=== PATIENT | female | born 1985 | race African-American/Black ===

== ENCOUNTER 2017-02-21 13:38 | Emergency (ER) | payer MEDICAID, OTHER ==
[2017-02-21 13:47] VITALS: BP 124/86; PULSE 89; RESP 14; TEMP 98.2; O2SAT 98
[2017-02-21] MEDS ORDERED: VENTAER INH (14:34)
--- NOTE | 2017-02-21 14:40 | PD ---
HPI Chief Complaint: Medical Clearance Time Seen by Provider: 14:27 Travel History International Travel<30 days: No Contact w/Intl Traveler<30days: No Traveled to known affect area: No History of Present Illness HPI 31-year-old female presents to the emergency department complaining of coughing up blood since doing this morning patient states that she has some "streaking" on her tissue in her she coughs. Patient denies shortness of breath. Patient denies excessive coughing. States she has had a little bit of "tightness" in her chest patient is asthmatic and has not been using her inhalers. Patient denies runny nose, fever, chills, recent travel, recent surgeries, fractures, or blood disorders. Patient denies any chronic medical problems or medication use. Patient denies any history of blood clots. Her last surgery was in August last year for breast reduction. Patient is followed up with her primary care physician about this yet. PFSH Past Medical History Asthma: Yes Autoimmune Disease: No Blood Disorders: No Cancer: No Cardiovascular Problems: No Diabetes: No Diminished Hearing: No Endocrine: No Genitourinary: No Headaches: Yes Hepatitis: No Hiatal Hernia: No Immune Disorder: No Medical other: No Musculoskeletal: No Neurologic: No Psychiatric: No Reproductive: No Respiratory: No Sickle Cell Disease: Yes (SICKLE CELL TRAIT) Thyroid Disease: No ?: Not : 2 Para: 2 Miscarriage: 0 : 1 Tubal Ligation: Yes Past Surgical History Abdominal Surgery: No AICD: No Cardiac Surgery: No Section: Yes (X2) Ear Surgery: No Endocrine Surgery: No Eye Surgery: No Gynecologic Surgery: Yes Joint Replacement: No Oral Surgery: No Pacemaker: No Thoracic Surgery: No Other Surgery: Yes (breast reduction) Social History Alcohol Use: No Tobacco Use: No Substance Use: No Allergies-Medications (Allergen,Severity, Reaction): Coded Allergies: No Known Allergies (Verified Adverse Reaction, Unknown, 02/21/17) Reported Meds & Prescriptions Reported Meds & Active Scripts Active Medrol Dosepak (Methylprednisolone) 4 Mg Dspk 4 Mg PO DIRECTED Per Pharmacist direction Reported Ventolin Hfa 18 GM Inh (Albuterol Sulfate) 90 Mcg/Act Aer 2 Puff INH Q6H PRN Review of Systems Except as stated in HPI: all other systems reviewed are Neg Physical Exam Narrative GENERAL: Well-nourished, well-developed patient. In no apparent distress SKIN: Focused skin assessment warm/dry. HEAD: Normocephalic. Atraumatic. EYES: No scleral icterus. No injection or drainage. NECK: Supple, trachea midline. No JVD or lymphadenopathy. Mild cobblestoning posterior pharynx CARDIOVASCULAR: Regular rate and rhythm without murmurs, gallops, or rubs. RESPIRATORY: Breath sounds equal bilaterally. No accessory muscle use. No wheezing, rales, rhonchi. GASTROINTESTINAL: Abdomen soft, non-tender, nondistended. MUSCULOSKELETAL: No cyanosis, or edema. BACK: Nontender without obvious deformity. No CVA tenderness. Data Data Last Documented VS Vital Signs Date Time Temp Pulse Resp B/P (MAP) Pulse Ox O2 Delivery O2 Flow Rate FiO2 02/21/17 13:47 98.2 89 14 124/86 (99) 98 Orders Orders Albuterol-Ipratropium Neb (Duoneb Neb) (02/21/17 14:45) Ed Discharge Order (02/21/17 15:17) [facility] Medical Decision Making Medical Screen Exam Complete: Yes Emergency Medical Condition: Yes Differential Diagnosis hemoptysis, pharyngitis, asthma Narrative Course 31-year-old female presents to the emergency department complaining of coughing up blood since doing this morning patient states that she has some "streaking" on her tissue in her she coughs. Patient denies shortness of breath. Patient denies excessive coughing. States she has had a little bit of "tightness" in her chest patient is asthmatic and has not been using her inhalers. Patient denies runny nose, fever, chills, recent travel, recent surgeries, fractures, or blood disorders. Patient denies any chronic medical problems or medication use. Patient denies any history of blood clots. Her last surgery was in August last year for breast reduction. Patient is followed up with her primary care physician about this yet. Vital signs stable. No tachycardia and no hypoxia. Physical exam findings unremarkable. Homans sign is negative patient denies chest pain, shortness of breath, leg pain. Wells and PERC rules applied and negative Patient received DuoNeb and reassessed. Patient states she feels better after the nebulizer treatments. Denies any episodes of coughing while she was in the emergency department. Patient had no coughing while in the emergency department today. Advised patient to return to her primary care physician for a potential addition to her albuterol treatment. Will prescribe prednisone for 5 days. Patient advised to return to the emergency department for worsening or persistent symptoms. Diagnosis Primary Impression: Asthma Qualified Codes: J45.20 - Mild intermittent asthma, uncomplicated Referrals: [facility] Additional Instructions: Follow up with your primary care physician within 2-3 days. If your symptoms persist or worsen, return to the emergency department. Take medications as prescribed. Scripts Methylprednisolone Dosepak (Medrol Dosepak) 4 Mg Dspk 4 MG PO DIRECTED, #1 DSPK 0 Refills Per Pharmacist direction Prov: Francois Marion MD 02/21/17 Disposition: 01 DISCHARGE HOME Condition: Stable Julianna Santana Feb 21, 2017 14:40
[2017-02-21] MEDS ORDERED: RESP: ALBUTEROL 2.5 MG/IPRATROPIUM 0.5 MG NEB (SCH) NEB ONE (14:45)
[2017-02-21] MEDS ORDERED: MEDR4PAK PO (15:15)
== END 2017-02-21 15:46 | disposition home or self-care (01) ==
LOC: NEPD 13:38
DX: J45.909 Unspecified asthma, uncomplicated (principal); R04.2 Hemoptysis; D57.3 Sickle-cell trait; Z79.51 Long term (current) use of inhaled steroids
CPT/HCPCS: 94664; 99283

== ENCOUNTER 2017-03-09 21:07 | Emergency (ER) | payer MEDICAID ==
[~2017-03-09] VITALS: Ht 165.1 cm; Wt 70.0 kg
[~2017-03-09 21:07] MED LIST: MEDR4PAK PO; VENTAER INH
[2017-03-09 21:10] VITALS: BP 127/72; PULSE 91; RESP 16; TEMP 98.7; O2SAT 99
[2017-03-09] MEDS ORDERED: ONDANSETRON HCL 4 MG/2 ML VIAL IVP ONE (21:45)
[2017-03-09] MEDS ORDERED: SODIUM CHLORIDE 0.9% FLUSH 10 ML FLUSH IVF PRN (21:45)
[2017-03-09] MEDS ORDERED: SODIUM CHLOR 0.9% 1000 ML INJ 1,000 ML IV ONE (21:45)
[2017-03-09 21:50] LABS: AUTOMATED NEUTROPHIL # 4.4 TH/MM3 (1.8-7.7); BASOPHIL # 0.1 TH/MM3 (0-0.2); EOSINOPHIL # 0.1 TH/MM3 (0-0.4); EOSINOPHIL % 0.9 % (0.0-4.0); HEMOGLOBIN 9.1 GM/DL (11.6-15.3); LYMPHOCYTE # 3.9 TH/MM3 (1.0-4.8); MEAN CELL VOLUME 67.2 FL (80.0-100.0); MEAN CORPUSCULAR HEMOGLOBIN 21.1 PG (27.0-34.0); MEAN CORPUSCULAR HGB CONC 31.4 % (32.0-36.0); MEAN PLATELET VOLUME 7.5 FL (7.0-11.0); MONO % 8.8 % (0.0-8.0); MONOCYTE # 0.8 TH/MM3 (0-0.9); NEUT % 47.3 % (16.0-70.0); PLATELET COUNT 495 TH/MM3 (150-450); RED BLOOD COUNT 4.31 MIL/MM3 (4.00-5.30); RED CELL DISTRIBUTION WIDTH 17.4 % (11.6-17.2); WHITE BLOOD COUNT 9.3 TH/MM3 (4.0-11.0)
--- NOTE | 2017-03-09 22:01 | PD ---
HPI Chief Complaint: GI Complaint Time Seen by Provider: 21:18 Travel History International Travel<30 days: No Contact w/Intl Traveler<30days: No Traveled to known affect area: No History of Present Illness HPI Patient is a 31-year-old female who presents to emergency room complaints of nausea. She reports that she is one-month late on her period, patient reports that she took 2 home test which were positive. Patient reports that she wanted to confirm her while in the emergency room. Patient reports no abdominal pain, no vomiting, patient denies any fever or chills, patient reports that she just feels nauseous. Denies dysuria, urinary urgency/ frequency. Denies vaginal discharge or bleeding. PFSH Past Medical History Asthma: Yes Autoimmune Disease: No Blood Disorders: No Cancer: No Cardiovascular Problems: No Diabetes: No Diminished Hearing: No Endocrine: No Genitourinary: No Headaches: Yes Hepatitis: No Hiatal Hernia: No Immune Disorder: No Musculoskeletal: No Neurologic: No Psychiatric: No Reproductive: No Respiratory: No Sickle Cell Disease: Yes (SICKLE CELL TRAIT) Thyroid Disease: No Tetanus Vaccination: Unknown Influenza Vaccination: Yes ?: LMP: 01/08/2017 : 2 Para: 2 Miscarriage: 0 : 1 Tubal Ligation: Yes Past Surgical History Abdominal Surgery: No AICD: No Cardiac Surgery: No Section: Yes (X2) Ear Surgery: No Endocrine Surgery: No Eye Surgery: No Gynecologic Surgery: Yes Joint Replacement: No Oral Surgery: No Pacemaker: No Thoracic Surgery: No Other Surgery: Yes (breast reduction) Social History Alcohol Use: No Tobacco Use: No Substance Use: No Allergies-Medications (Allergen,Severity, Reaction): Coded Allergies: No Known Allergies (Verified Adverse Reaction, Unknown, 03/09/17) Reported Meds & Prescriptions Reported Meds & Active Scripts Active Reported Ventolin Hfa 18 GM Inh (Albuterol Sulfate) 90 Mcg/Act Aer 2 Puff INH Q6H PRN Review of Systems General / Constitutional: No: Fever Eyes: No: Visual changes HENT: No: Headaches Cardiovascular: No: Chest Pain or Discomfort Respiratory: No: Shortness of Breath Gastrointestinal: Positive: Nausea, No: Abdominal Pain Genitourinary: No: Dysuria, Nocturia, Hematuria, Pelvic Pain, Flank Pain, Discharge, Vaginal Bleeding Musculoskeletal: No: Pain Skin: No Rash Neurologic: No: Weakness Psychiatric: No: Depression Endocrine: No: Polydipsia Hematologic/Lymphatic: No: Easy Bruising Physical Exam Narrative GENERAL: NAD SKIN: Focused skin assessment warm/dry. HEAD: Atraumatic. Normocephalic. EYES: Pupils equal and round. No scleral icterus. No injection or drainage. ENT: No nasal bleeding or discharge. Mucous membranes pink and moist. NECK: Trachea midline. No JVD. CARDIOVASCULAR: Regular rate and rhythm. No murmur appreciated. RESPIRATORY: No accessory muscle use. Clear to auscultation. Breath sounds equal bilaterally. GASTROINTESTINAL: Abdomen soft, non-tender, nondistended. Hepatic and splenic margins not palpable. MUSCULOSKELETAL: No obvious deformities. No clubbing. No cyanosis. No edema. NEUROLOGICAL: Awake and alert. Normal speech. PSYCHIATRIC: Appropriate mood and affect; insight and judgment normal. Data Data Last Documented VS Vital Signs Date Time Temp Pulse Resp B/P (MAP) Pulse Ox O2 Delivery O2 Flow Rate FiO2 03/09/17 21:10 98.7 91 16 127/72 (90) 99 Orders Orders Ed Urine Pregnancytest Poc (03/09/17 21:24) Beta Hcg (Quant/Titer) (03/09/17 21:32) Complete Blood Count With Diff (03/09/17 21:32) Comprehensive Metabolic Panel (03/09/17 21:32) Iv Access Insert/Monitor (03/09/17 21:32) Sodium Chloride 0.9% Flush (Ns Flush) (03/09/17 21:45) Ondansetron Inj (Zofran Inj) (03/09/17 21:45) Sodium Chlor 0.9% 1000 Ml Inj (Ns 1000 M (03/09/17 21:45) Urinalysis - C+S If Indicated (03/09/17 21:32) Potassium Chloride (Kcl) (03/09/17 23:00) Labs Laboratory Tests Test 03/09/17 21:40 White Blood Count 9.3 TH/MM3 Red Blood Count 4.31 MIL/MM3 Hemoglobin 9.1 GM/DL Hematocrit 29.0 % Mean Corpuscular Volume 67.2 FL Mean Corpuscular Hemoglobin 21.1 PG Mean Corpuscular Hemoglobin Concent 31.4 % Red Cell Distribution Width 17.4 % Platelet Count 495 TH/MM3 Mean Platelet Volume 7.5 FL Neutrophils (%) (Auto) 47.3 % Lymphocytes (%) (Auto) 42.0 % Monocytes (%) (Auto) 8.8 % Eosinophils (%) (Auto) 0.9 % Basophils (%) (Auto) 1.0 % Neutrophils # (Auto) 4.4 TH/MM3 Lymphocytes # (Auto) 3.9 TH/MM3 Monocytes # (Auto) 0.8 TH/MM3 Eosinophils # (Auto) 0.1 TH/MM3 Basophils # (Auto) 0.1 TH/MM3 CBC Comment DIFF FINAL Differential Comment Blood Urea Nitrogen 8 MG/DL Creatinine 0.72 MG/DL Random Glucose 142 MG/DL Total Protein 7.8 GM/DL Albumin 3.4 GM/DL Calcium Level 8.1 MG/DL Alkaline Phosphatase 83 U/L Aspartate Amino Transf (AST/SGOT) 14 U/L Alanine Aminotransferase (ALT/SGPT) 18 U/L Total Bilirubin 0.2 MG/DL Sodium Level 140 MEQ/L Potassium Level 3.3 MEQ/L Chloride Level 106 MEQ/L Carbon Dioxide Level 25.6 MEQ/L Anion Gap 8 MEQ/L Estimat Glomerular Filtration Rate 114 ML/MIN Human Chorionic Gonadotropin, Quant LESS THAN 1 MIU/ML MDM Medical Decision Making Medical Screen Exam Complete: Yes Emergency Medical Condition: Yes Medical Record Reviewed: Yes Interpretation(s) Vital Signs Date Time Temp Pulse Resp B/P (MAP) Pulse Ox O2 Delivery O2 Flow Rate FiO2 03/09/17 21:10 98.7 91 16 127/72 (90) 99 Differential Diagnosis , electrolyte abnormality, viral syndrome Narrative Course During the course of the patients emergency department visit, the patients history, examination, and differential diagnosis were reviewed with the patient. The patient was placed on a monitoring manager with oximetry and frequent blood pressure monitoring. The patient had an IV access obtained and blood work sent for analysis. Urine test was neg in the ER. HCG quant ordered. Overall, patient is nontoxic in appearance, patient's abdomen is soft nontender, nondistended, no peritoneal sign. The patient was initially provided IVF as well as zofran The patients laboratory studies were reviewed and remarkable for: CBC & BMP Diagram 03/09/17 21:40 Total Protein 7.8, Albumin 3.4, Calcium Level 8.1 L, Alkaline Phosphatase 83, Aspartate Amino Transf (AST/SGOT) 14 L, Alanine Aminotransferase (ALT/SGPT) 18, Total Bilirubin 0.2 hcg quant less than 1 Patient reevaluated, patient reports that she is feeling much better at this time. Patient with no abdominal pain, no nausea vomiting at this time. I reviewed all labs and all studies with patient in detail including all incidental findings, she will follow up with her primary doctor and will return to emergency room as needed. Diagnosis Primary Impression: Nausea Additional Impressions: Anemia Hypokalemia Patient Instructions: General Instructions Additional Instructions: Please follow up with your primary care doctor in 2-3 days Return to the ER if symptoms worsen or progress Return to the ER as needed Med/Other Pt SpecificInfo: Prescription(s) given Scripts Ondansetron (Zofran) 4 Mg Tab 4 MG PO Q6HR Y for NAUSEA OR VOMITING, #12 TAB 0 Refills Prov: Lesia Gracia DO 03/09/17 Disposition: 01 DISCHARGE HOME Condition: Stable Lesia Gracia DO Mar 09, 2017 22:01
[2017-03-09 22:02] LABS: ALBUMIN 3.4 GM/DL (3.4-5.0); AST (GOT) 14 U/L (15-37); BICARBONATE 25.6 MEQ/L (21.0-32.0); BLOOD UREA NITROGEN 8 MG/DL (7-18); CALCIUM 8.1 MG/DL (8.5-10.1); CHLORIDE 106 MEQ/L (98-107); CREATININE 0.72 MG/DL (0.50-1.00); GLOMERULAR FILTRATION RATE 114 ML/MIN (>89); GLUCOSE,RANDOM 142 MG/DL (74-106); SODIUM (NA) 140 MEQ/L (136-145)
[2017-03-09 22:03] LABS: ALT (GPT) 18 U/L (10-53)
[2017-03-09 22:07] LABS: ALKALINE PHOSPHATASE 83 U/L (45-117); TOTAL BILIRUBIN ADULT 0.2 MG/DL (0.2-1.0); TOTAL PROTEIN 7.8 GM/DL (6.4-8.2)
[2017-03-09] MEDS ORDERED: POTASSIUM CHLORIDE 10 MEQ CONTROLLED RELEASE TAB PO ONE (23:00)
[2017-03-09] MEDS ORDERED: ZOFR4TAB PO (23:14)
== END 2017-03-09 23:37 | disposition home or self-care (01) ==
LOC: NEPD 21:07
DX: R11.0 Nausea (principal); D64.9 Anemia, unspecified; E87.6 Hypokalemia; J45.909 Unspecified asthma, uncomplicated; D57.3 Sickle-cell trait; Z79.51 Long term (current) use of inhaled steroids
CPT/HCPCS: 80053; 84702; 84703; 85025; 96374; 99284; J2405; J7030

== ENCOUNTER 2017-04-21 19:37 | Emergency (ER) | payer MEDICAID ==
[~2017-04-21 19:37] MED LIST changes: -MEDR4PAK PO; +ZOFR4TAB PO
[2017-04-21 19:39] VITALS: BP 114/75; PULSE 100; RESP 16; TEMP 94.4; O2SAT 100
--- NOTE | 2017-04-21 20:58 | PD ---
HPI Chief Complaint: Cold / Flu Symptoms Time Seen by Provider: 19:45 Travel History International Travel<30 days: No Contact w/Intl Traveler<30days: No Traveled to known affect area: No History of Present Illness HPI 31-year-old female with generalized weakness 2 days with developing fever and body aches. No nausea or vomiting. Intermittent cough. Patient has no other symptoms to report. PFSH Past Medical History Asthma: Yes Autoimmune Disease: No Blood Disorders: No Cancer: No Cardiovascular Problems: No Diabetes: No Diminished Hearing: No Endocrine: No Genitourinary: No Headaches: Yes Hepatitis: No Hiatal Hernia: No Immune Disorder: No Musculoskeletal: No Neurologic: No Psychiatric: No Reproductive: No Respiratory: No Sickle Cell Disease: Yes (SICKLE CELL TRAIT) Thyroid Disease: No : 2 Para: 2 Miscarriage: 0 : 1 Tubal Ligation: Yes Past Surgical History Abdominal Surgery: No AICD: No Cardiac Surgery: No Section: Yes (X2) Ear Surgery: No Endocrine Surgery: No Eye Surgery: No Gynecologic Surgery: Yes Joint Replacement: No Oral Surgery: No Pacemaker: No Thoracic Surgery: No Other Surgery: Yes (breast reduction) Social History Alcohol Use: No Tobacco Use: No Substance Use: No Allergies-Medications (Allergen,Severity, Reaction): Coded Allergies: No Known Allergies (Verified Adverse Reaction, Unknown, 03/09/17) Reported Meds & Prescriptions Reported Meds & Active Scripts Active Zofran (Ondansetron HCl) 4 Mg Tab 4 Mg PO Q6HR PRN Reported Ventolin Hfa 18 GM Inh (Albuterol Sulfate) 90 Mcg/Act Aer 2 Puff INH Q6H PRN Review of Systems Except as stated in HPI: all other systems reviewed are Neg Physical Exam Narrative Well-nourished appearing female patient in no acute distress. She appears nontoxic. She is awake and alert. She moves all extremities. Her respirations are even. Abdomen is nondistended. There are no obvious deformities of the lower extremities. Data Data Last Documented VS Vital Signs Date Time Temp Pulse Resp B/P (MAP) Pulse Ox O2 Delivery O2 Flow Rate FiO2 04/21/17 19:39 94.4 100 16 114/75 (88) 100 Room Air MDM Medical Decision Making Medical Screen Exam Complete: Yes Emergency Medical Condition: Yes Medical Record Reviewed: Yes Differential Diagnosis Influenza versus pneumonia versus common cold versus viral syndrome Narrative Course 31-year-old female presents to emergency department for evaluation of flulike symptoms. Patient appears nontoxic. Temp is rechecked and 99.3. Prior to patient being assigned a bed, she chooses sleeve. AMA: The risks of leaving against medical advice without further evaluation treatment were discussed with the patient. These risks include cardiac dysfunction, cardiac dysrhythmia, possible heart attack, possible stroke or . The patient indicated understanding of these risks and appeared to have the capacity to make this decision. Diagnosis Primary Impression: Flu-like symptoms Disposition: 07 AGAINST MEDICAL ADVICE Condition: Stable TrevorNiaJannetteradha PAUL Apr 21, 2017 20:58
[2017-04-22] MEDS ORDERED: OSEL75 PO (18:12)
== END 2017-04-21 20:32 | disposition left against medical advice (07) ==
LOC: NED 19:37
DX: R53.1 Weakness (principal)
CPT/HCPCS: 99281

== ENCOUNTER 2017-04-22 17:33 | Emergency (ER) | payer MEDICAID ==
[~2017-04-22] VITALS: Ht 160 cm; Wt 77.0 kg
[2017-04-22 17:35] VITALS: BP 122/56; PULSE 107; RESP 20; TEMP 100.2; O2SAT 100
--- NOTE | 2017-04-22 18:10 | PD ---
HPI Chief Complaint: Cold / Flu Symptoms Time Seen by Provider: 18:04 Travel History International Travel<30 days: No Contact w/Intl Traveler<30days: No Traveled to known affect area: No History of Present Illness HPI 31-year-old female presents for evaluation of chills, myalgias, cough, congestion and sore throat. Symptoms started yesterday. Symptoms are mild, no aggravating or relieving factors. Denies recent travel, nausea or vomiting, abdominal pain, dysuria, rash. She has no other complaints at this time. PFSH Past Medical History Asthma: Yes Autoimmune Disease: No Blood Disorders: No Cancer: No Cardiovascular Problems: No Diabetes: No Diminished Hearing: No Endocrine: No Genitourinary: No Headaches: Yes Hepatitis: No Hiatal Hernia: No Immune Disorder: No Musculoskeletal: No Neurologic: No Psychiatric: No Reproductive: No Respiratory: No Sickle Cell Disease: Yes (SICKLE CELL TRAIT) Thyroid Disease: No ?: Not LMP: 03/24 : 2 Para: 2 Miscarriage: 0 : 1 Tubal Ligation: Yes Past Surgical History Abdominal Surgery: No AICD: No Cardiac Surgery: No Section: Yes (X2) Ear Surgery: No Endocrine Surgery: No Eye Surgery: No Gynecologic Surgery: Yes Joint Replacement: No Oral Surgery: No Pacemaker: No Thoracic Surgery: No Other Surgery: Yes (breast reduction) Social History Alcohol Use: No Tobacco Use: No Substance Use: No Allergies-Medications (Allergen,Severity, Reaction): Coded Allergies: No Known Allergies (Verified Adverse Reaction, Unknown, 03/09/17) Reported Meds & Prescriptions Reported Meds & Active Scripts Active Tamiflu (Oseltamivir Phosphate) 75 Mg Cap 75 Mg PO BID 5 Days Zofran (Ondansetron HCl) 4 Mg Tab 4 Mg PO Q6HR PRN Reported Ventolin Hfa 18 GM Inh (Albuterol Sulfate) 90 Mcg/Act Aer 2 Puff INH Q6H PRN Review of Systems Except as stated in HPI: all other systems reviewed are Neg Physical Exam Narrative GENERAL: Well-developed well-nourished female in no acute distress SKIN: Warm and dry. HEAD: Atraumatic. Normocephalic. EYES: Pupils equal and round. No scleral icterus. No injection or drainage. ENT: No nasal bleeding or discharge. Mucous membranes pink and moist. NECK: Trachea midline. No JVD. CARDIOVASCULAR: Regular rate and rhythm. No murmur appreciated. RESPIRATORY: No accessory muscle use. Clear to auscultation. Breath sounds equal bilaterally. GASTROINTESTINAL: Abdomen soft, non-tender, nondistended. Hepatic and splenic margins not palpable. MUSCULOSKELETAL: No obvious deformities. No clubbing. No cyanosis. No edema. NEUROLOGICAL: Awake and alert. No obvious cranial nerve deficits. Motor grossly within normal limits. Normal speech. PSYCHIATRIC: Appropriate mood and affect; insight and judgment normal. Data Data Last Documented VS Vital Signs Date Time Temp Pulse Resp B/P (MAP) Pulse Ox O2 Delivery O2 Flow Rate FiO2 04/22/17 17:35 100.2 107 20 122/56 (78) 100 Room Air Orders Orders Influenzae A/B Antigen (04/22/17 17:42) Acetaminophen (Tylenol) (04/22/17 18:15) Ed Discharge Order (04/22/17 18:23) [facility] Medical Decision Making Medical Screen Exam Complete: Yes Emergency Medical Condition: Yes Medical Record Reviewed: Yes Differential Diagnosis Influenza, rhinitis, sinusitis, bronchitis, pneumonia Narrative Course The patient is positive for influenza a. She will be discharged with Tamiflu. Diagnosis Primary Impression: Influenza A Departure Forms: School Release, Return to School Date: Apr 28, 2017 Tests/Procedures Additional Instructions: Medication as prescribed, started today. Take Tylenol or Motrin for fever and bodyaches per dosing instructions on the bottle. Stay well-hydrated and well- nourished. Return for any emergent medical conditions. Med/Other Pt SpecificInfo: Prescription(s) given Scripts Oseltamivir (Tamiflu) 75 Mg Cap 75 MG PO BID for Mgmt Viral Infection for 5 Days, #10 CAP 0 Refills Prov: Ramses Banks MD 04/22/17 Disposition: 01 DISCHARGE HOME Condition: Stable Hakan Tanner Apr 22, 2017 18:10
[2017-04-22] MEDS ORDERED: OSEL75 PO (18:12)
[2017-04-22] MEDS ORDERED: ACETAMINOPHEN 325 MG TAB PO ONE (18:15)
== END 2017-04-22 18:57 | disposition home or self-care (01) ==
LOC: NEPK 17:33
DX: J10.89 Influenza due to other identified influenza virus with other manifestations (principal); M79.1 Myalgia; J02.9 Acute pharyngitis, unspecified; J45.909 Unspecified asthma, uncomplicated; D57.3 Sickle-cell trait
CPT/HCPCS: 87804; 99283

== ENCOUNTER 2017-05-05 19:37 | Emergency (ER) | payer MEDICAID ==
[~2017-05-05 19:37] MED LIST changes: +OSEL75 PO
[2017-05-05 19:46] VITALS: BP 135/69; PULSE 90; RESP 14; TEMP 99.9; O2SAT 100
[2017-05-05] MEDS ORDERED: LIDOCAINE HCL 1% 50 ML VIAL IM ONE (22:30)
[2017-05-05] MEDS ORDERED: AZITHROMYCIN PWD FOR SUSP 1 GM PACKET PO ONE (22:30)
[2017-05-05] MEDS ORDERED: cefTRIAXone 250 MG VIAL IM ONE (22:30)
--- NOTE | 2017-05-05 22:37 | PD ---
HPI Chief Complaint: Land Development Project Manager Problem/Complaint Time Seen by Provider: 22:06 Travel History International Travel<30 days: No Contact w/Intl Traveler<30days: No Traveled to known affect area: No History of Present Illness HPI Patient is a 31-year-old female presenting to the emergency department for evaluation of vaginal discharge and low back pain. Patient states she has had vaginal discharge for the last week. She states that it has a faint yellow color and a mild odor. She denies any vaginal bleeding or dysuria. She does report unprotected sex approximately 3-4 weeks ago. She reports experiencing low back pain for the last 2 days, she reports the pain is a 4 out of 10, she reports it is stiff feeling. Symptom onset was gradual, severity is mild to moderate, there are no alleviating factors. Patient reports that her pain is exacerbated with movement. She denies any fever, chills, abdominal pain, nausea , vomiting. PFSH Past Medical History Asthma: Yes Autoimmune Disease: No Blood Disorders: No Cancer: No Cardiovascular Problems: No Diabetes: No Diminished Hearing: No Endocrine: No Gastrointestinal Disorders: No Genitourinary: No Headaches: Yes Hepatitis: No Hiatal Hernia: No Hypertension: No Immune Disorder: No Implanted Vascular Access Dvce: No Medical other: No Musculoskeletal: No Neurologic: No Psychiatric: No Reproductive: No Respiratory: No Sickle Cell Disease: Yes (SICKLE CELL TRAIT) Thyroid Disease: No ?: Not LMP: 04/28/2017 : 2 Para: 2 Miscarriage: 0 : 1 Tubal Ligation: Yes Past Surgical History Abdominal Surgery: No AICD: No Cardiac Surgery: No Section: Yes (X2) Ear Surgery: No Endocrine Surgery: No Eye Surgery: No Gynecologic Surgery: Yes Joint Replacement: No Neurologic Surgery: No Oral Surgery: No Pacemaker: No Thoracic Surgery: No Other Surgery: Yes (breast reduction) Social History Alcohol Use: No Tobacco Use: No Substance Use: No Allergies-Medications (Allergen,Severity, Reaction): Coded Allergies: No Known Allergies (Verified Adverse Reaction, Unknown, 05/05/17) Reported Meds & Prescriptions Reported Meds & Active Scripts Active Reported Ventolin Hfa 18 GM Inh (Albuterol Sulfate) 90 Mcg/Act Aer 2 Puff INH Q6H PRN Review of Systems Except as stated in HPI: all other systems reviewed are Neg Genitourinary: Positive: Discharge, No: Dysuria, Pelvic Pain, Vaginal Bleeding Musculoskeletal: Positive: Myalgias Physical Exam Narrative GENERAL: Well-developed, well-nourished, alert -[place] female. Presenting in no acute distress. SKIN: Warm and dry. HEAD: Atraumatic. Normocephalic. EYES: Pupils equal and round. No scleral icterus. No injection or drainage. ENT: No nasal bleeding or discharge. Mucous membranes pink and moist. NECK: Trachea midline. No JVD. CARDIOVASCULAR: Regular rate and rhythm. RESPIRATORY: No accessory muscle use. Clear to auscultation. Breath sounds equal bilaterally. GASTROINTESTINAL: Abdomen soft, non-tender, nondistended. Hepatic and splenic margins not palpable. Positive bowel sounds, no rebound, no guarding GENITOURINARY: Normal external genitalia without lesions or erythema. Vaginal vault without blood, clear yellow drainage. Cervical os was closed without drainage. No cervical motion tenderness. Uterus nontender and nonenlarged. Bilateral adnexa nontender without masses. MUSCULOSKELETAL: Extremities without clubbing, cyanosis, or edema. No obvious deformities. NEUROLOGICAL: Awake and alert. No obvious cranial nerve deficits. Motor grossly within normal limits. Five out of 5 muscle strength in the arms and legs. Normal speech. PSYCHIATRIC: Appropriate mood and affect; insight and judgment normal. Data Data Last Documented VS Vital Signs Date Time Temp Pulse Resp B/P (MAP) Pulse Ox O2 Delivery O2 Flow Rate FiO2 05/05/17 19:46 99.9 90 14 135/69 (91) 100 Orders Orders Urinalysis - C+S If Indicated (05/05/17 19:47) Ed Urine Pregnancytest Poc (05/05/17 19:47) Gc And Chlamydia Pcr (05/05/17 22:07) Wet Prep Profile (05/05/17 22:07) Azithromycin Powd Pack (Zithromax Powd P (05/05/17 22:30) Ceftriaxone Inj (Rocephin Inj) (05/05/17 22:30) Lidocaine 1% Inj (50 Ml) (Xylocaine 1% I (05/05/17 22:30) Lidocaine 1% Inj (Xylocaine 1% Inj) (05/05/17 22:52) Labs Laboratory Tests Test 05/05/17 19:50 05/05/17 22:27 Urine Color LIGHT-YELLOW Urine Turbidity CLEAR Urine pH 8.5 Urine Specific [place] 1.020 Urine Protein TRACE mg/dL Urine Glucose (UA) NEG mg/dL Urine Ketones NEG mg/dL Urine Occult Blood NEG Urine Nitrite NEG Urine Bilirubin NEG Urine Urobilinogen 2.0 MG/DL Urine Leukocyte Esterase NEG Urine RBC 1 /hpf Urine WBC LESS THAN 1 /hpf Urine Squamous Epithelial Cells 3 /hpf Microscopic Urinalysis Comment CULT NOT INDICATED Clue Cells (Wet Prep) NONE SEEN Vaginal Trichomonas (Wet Prep) NONE SEEN Vaginal Yeast (Wet Prep) NONE SEEN MDM Medical Decision Making Medical Screen Exam Complete: Yes Emergency Medical Condition: Yes Interpretation(s) Laboratory Tests Test 05/05/17 19:50 05/05/17 22:27 Urine Color LIGHT-YELLOW Urine Turbidity CLEAR Urine pH 8.5 Urine Specific [place] 1.020 Urine Protein TRACE mg/dL Urine Glucose (UA) NEG mg/dL Urine Ketones NEG mg/dL Urine Occult Blood NEG Urine Nitrite NEG Urine Bilirubin NEG Urine Urobilinogen 2.0 MG/DL Urine Leukocyte Esterase NEG Urine RBC 1 /hpf Urine WBC LESS THAN 1 /hpf Urine Squamous Epithelial Cells 3 /hpf Microscopic Urinalysis Comment CULT NOT INDICATED Clue Cells (Wet Prep) NONE SEEN Vaginal Trichomonas (Wet Prep) NONE SEEN Vaginal Yeast (Wet Prep) NONE SEEN Vital Signs Date Time Temp Pulse Resp B/P (MAP) Pulse Ox O2 Delivery O2 Flow Rate FiO2 05/05/17 19:46 99.9 90 14 135/69 (91) 100 Differential Diagnosis STD versus UTI versus DVT versus muscle strain versus muscle spasm versus other Narrative Course Patient is well-appearing 31-year-old female presenting with vaginal discharge and low back pain. Patient's vital signs are stable, wet prep is negative, patient was treated empirically for chlamydia and gonorrhea. Urinalysis is unremarkable. Back pain is consistent with muscular skeletal strain. Patient was advised to apply warm heat, continue range of motion exercises and take ibuprofen as needed as directed. She was advised that she would be notified of the results of her GC and chlamydia test. She was encouraged to avoid sexual contact until she is aware to avoid reinfection with sexual partner. She verbalized understanding of instructions. Patient stable for discharge. Diagnosis Primary Impression: Vaginal discharge Additional Impression: Low back pain Qualified Codes: M54.5 - Low back pain Referrals: Online Content Developer Primary Care Physician Patient Instructions: Acute Low Back Pain (ED), General Instructions, Vaginal Discharge (ED) Additional Instructions: Follow-up with your primary doctor and/or mixing machine tender Apply warm heat to the affected area, continue range of motion exercises, take medications as directed and avoid exacerbating activities You will be notified if your tests for chlamydia and/or gonorrhea are positive. If positive sexual partner should be notified and treated if needed. Return to the emergency department for any new or worsening symptoms Med/Other Pt SpecificInfo: Prescription(s) given Scripts Cyclobenzaprine (Flexeril) 10 Mg Tab 10 MG PO TID Y for MUSCLE SPASM, #21 TAB 0 Refills Prov: Cris Berger 05/05/17 Ibuprofen (Ibuprofen) 800 Mg Tab 800 MG PO Q6HR Y for PAIN, #40 TAB 0 Refills Prov: Cris Berger 05/05/17 Disposition: 01 DISCHARGE HOME Condition: Stable Cris Berger May 05, 2017 22:37
[2017-05-05 22:51] LABS: BILIRUBIN, URINE NEG (NEG); BLOOD, URINE NEG (NEG); GLUCOSE,URINE NEG (NEG); KETONE, URINE NEG (NEG); NITRITE,URINE NEG (NEG); PH, URINE 8.5 (5.0-8.5); SQUAMOUS EPITHELIAL CELL URINE 3 /hpf (0-5); URINE COLOR LIGHT-YELLOW (YELLW/STRAW); URINE LEUKOCYTE ESTERASE NEG (NEG)
[2017-05-05] MEDS ORDERED: LIDOCAINE HCL 1% 20 ML VIAL ONE (22:52)
[2017-05-05] MEDS ORDERED: CYCL10TA PO (23:36)
[2017-05-05] MEDS ORDERED: IBUP1TAB7 PO (23:36)
== END 2017-05-06 00:21 | disposition home or self-care (01) ==
LOC: NEPD 19:37
DX: N89.8 Other specified noninflammatory disorders of vagina (principal); M54.5 Low back pain
CPT/HCPCS: 81001; 84703; 87210; 87491; 87591; 96372; 99283; J0696